=== PATIENT | female | born 1940 | race African-American/Black ===

== ENCOUNTER 2017-02-07 23:54 | Emergency (ER) | payer OTHER, MEDICAID ==
[~2017-02-07] VITALS: Ht 165.1 cm; Wt 68.9 kg
[~2017-02-07 23:54] MED LIST: BENA5TAB5 PO; CHOL20007 OR; CILO100T PO; CLON0.3D4 PO; DOCU100C8 PO; FERR-20 PO; FURO20TA3 PO; GABA-497 PO; GLIP-115 PO; LORA1TAB12 PO; RIVA1DIS TD; SIMV10TA84 PO; TRIA75TA55 PO
[2017-02-08 00:46] LABS: Basophils # (auto) 0 uL; Eosinophils # (auto) 0 uL; Lymphocytes # (auto) 1.9 uL; Monocytes # (auto) 0.5 uL; Red Cell Distribution Width 15.5 % (11.8-14.3); White Blood Cell 7.7 10^3/uL (4.4-10.8)
[2017-02-08 00:47] LABS: Allen Test Yes; Base Excess 0.4 mmol/L (-2.0-2.0); Blood 02Sat 92.6 % (96-100); Blood COHb 0.3 % (0.5-1.5); Blood MetHb 0.2 % (0.0-1.5); HCO3 24.3 mmol/L (22-26.0); HHb 7.4 % (0.0-5.0); MODE ROOM AIR; O2Hb 92.1 % (94.0-97.0); PCO2 36.4 mmHg (35.0-45.0); PCO2(T) 36.4 mmHg (35.0-45.0); PO2 65.7 mmHg (80.0-100.0); PO2(T) 65.7 mmHg (80.0-100.0); Sample Type Arterial; pH 7.443 (7.350-7.450)
[2017-02-08 00:48] LABS: Basophils % (auto) 0.4 % (0.0-2.0); Eosinophils % (auto) 0.6 % (0.0-7.0); Hematocrit 30.2 % (36.0-46.0); Hemoglobin 9.8 g/dL (12.2-16.2); Lymphocytes % (auto) 24.2 % (10.0-50.0); Mean Corpuscular Hemoglobin 25.1 pg (28.0-32.0); Mean Corpuscular Hgb Conc. 32.6 g/dL (32.0-36.0); Mean Platelet Volume 7.5 fL (6.9-10.8); Monocytes % (auto) 6.7 % (0.0-12.0); Neutrophils # (auto) 5.3 uL; Neutrophils % (auto) 68.1 % (37.0-80.0); Nucleated Red Blood Cells % 0.1 %; Platelet Count (auto) 339 10^3/uL (140-450)
[2017-02-08 00:50] LABS: Urine Bilirubin Negative (Negative); Urine Blood Negative /uL (Negative); Urine Color Yellow (Yellow); Urine Glucose Normal (Normal); Urine Hyaline Cast FEW /lpf (0 - 2); Urine Ketone Negative (Negative); Urine Mucus FEW (None Seen); Urine Nitrite POSITIVE (Negative); Urine RBC 11 /hpf (0 - 4); Urine Squamous Epithelial Cell FEW /hpf (<5); Urine Urobilinogen Normal (Negative); Urine pH 5.5 (5.0-8.0)
[2017-02-08 01:00] LABS: Partial Thromboplastin Time 26.5 sec (22.64-33.71); Prothrombin Time 10.9 sec (9.37-12.3)
[2017-02-08 01:09] LABS: Albumin 3.3 g/dL (3.4-5.0); Alkaline Phosphatase 197 U/L (45-117); Anion Gap 6 (5-15); Aspartate Aminotransferase 30 U/L (15-37); BUN/Creatinine Ratio 41.2; Bilirubin, Total 0.4 mg/dL (0.2-1.0); Blood Urea Nitrogen 49 mg/dL (7-18); Calcium 9.2 mg/dL (8.5-10.1); Carbon Dioxide 27 mmol/L (21-32); Chloride 105 mmol/L (98-107); GFR African American 57 mL/min; GFR Non-African American 47 mL/min; Glucose 117 mg/dL (74-106); Magnesium 2.3 mg/dL (1.6-2.6); Potassium 3.3 mmol/L (3.5-5.1); Sodium 138 mmol/L (136-145); Total Protein 7.4 g/dL (6.4-8.2)
[2017-02-08 01:14] LABS: B-Type Natriuretic Peptide 14.7 pg/mL (0-100); Temperature: 21.5 C (20.0-25.0)
[2017-02-08] MEDS ORDERED: SODIUM CHLORIDE 0.9% 1,000 ML IV ONE (01:30)
[2017-02-08] MEDS ORDERED: CEFTRIAXONE SODIUM 2 GM in D5W 5% 50 ML IV ONE (01:30)
[2017-02-08] MEDS ORDERED: cefTRIAXone 1GM/10ml IVPUSH 20 ML IV ONE (01:32)
[2017-02-08] MEDS ORDERED: OXYCODONE W/ ACETAMINOPHEN 5/325MG TABLET PO ONE (04:45)
[2017-02-08] MEDS ORDERED: SODIUM CHLORIDE 0.9% 500 ML IV ONE (05:15)
[2017-02-08] MEDS ORDERED: LEVOFLOXACIN 500MG 100 ML IV ONE (05:15)
[2017-02-08] MEDS ORDERED: POTASSIUM CHL 10% (20 MEQ/15ML) 15ml ORAL SOLN PO ONE (05:15)
[2017-02-08 06:55] VITALS: BP 125/72
== END 2017-02-08 07:24 | disposition home or self-care (01) ==
LOC: EDBD 23:54 → ER 02-08 00:02
DX: A41.9 Sepsis, unspecified organism (principal); R41.82 Altered mental status, unspecified; N39.0 Urinary tract infection, site not specified; I50.9 Heart failure, unspecified; I11.0 Hypertensive heart disease with heart failure; E11.9 Type 2 diabetes mellitus without complications; F02.80 Dementia in other diseases classified elsewhere, unspecified severity, without behavioral disturbance, psychotic disturbance, mood disturbance, and anxiety; G30.9 Alzheimer's disease, unspecified; Z86.73 Personal history of transient ischemic attack (TIA), and cerebral infarction without residual deficits
CPT/HCPCS: 36415; 36600; 70450; 71010; 80053; 80307; 80320; 81001; 82805; 83605; 83735; 83880; 84484; 85025; 85610; 85730; 86141; 87040; 87086; 87088; 87186; 93005; 96361; 96365; 96375; 99291; J0696; J1956; 96367; J7060

== ENCOUNTER 2017-03-05 11:58 | Inpatient (IN) | payer OTHER, MEDICAID ==
[~2017-03-05] VITALS: Ht 170.2 cm; Wt 78.0 kg
[~2017-03-05 11:58] MED LIST changes: -GABA-497 PO; +GABA300C10 PO
[2017-03-05] MEDS ORDERED: SODIUM CHLORIDE 0.9% 1,000 ML IV ONE ×2 (15:54→19:15)
[2017-03-05] MEDS ORDERED: PROMETHAZINE HCL 25 MG/ML 1ML IV ONE (16:00)
[2017-03-05] MEDS ORDERED: HYDROmorphone HCL 2 MG/ML VL IV ONE (16:00)
[2017-03-05 17:49] LABS: Eosinophils # (auto) 0 uL
[2017-03-05 17:53] LABS: Basophils # (auto) 0.1 uL; Basophils % (auto) 0.6 % (0.0-2.0); Eosinophils % (auto) 0.2 % (0.0-7.0); Hemoglobin 10.3 g/dL (12.2-16.2); Lymphocytes # (auto) 1.6 uL; Lymphocytes % (auto) 19.3 % (10.0-50.0); Mean Corpuscular Hemoglobin 24.6 pg (28.0-32.0); Mean Corpuscular Hgb Conc. 32.1 g/dL (32.0-36.0); Mean Corpuscular Volume 76.5 fL (80.0-100.0); Monocytes # (auto) 0.4 uL; Monocytes % (auto) 4.9 % (0.0-12.0); Neutrophils # (auto) 6.1 uL; Nucleated Red Blood Cells % 0.2 %; Platelet Count (auto) 291 10^3/uL (140-450); Red Blood Cells 4.19 10^6/uL (4.0-5.20); Red Cell Distribution Width 16.6 % (11.8-14.3); White Blood Cell 8.2 10^3/uL (4.4-10.8)
[2017-03-05 18:03] LABS: INR 0.99 (0.9-1.15); Partial Thromboplastin Time 22.4 sec (22.64-33.71); Prothrombin Time 10.8 sec (9.37-12.3)
[2017-03-05] MEDS ORDERED: LORazepam 2MG/ML-1ML VIAL ONE (18:04)
[2017-03-05 18:08] LABS: Albumin 3.6 g/dL (3.4-5.0); Bilirubin, Total 0.3 mg/dL (0.2-1.0); Calcium 8.9 mg/dL (8.5-10.1); Potassium 4.3 mmol/L (3.5-5.1); Total Protein 7.8 g/dL (6.4-8.2)
[2017-03-05] MEDS ORDERED: LORazepam 2MG/ML-1ML VIAL IV ONE (18:30)
[2017-03-05] MEDS ORDERED: MORPHINE SULF INJ 2 MG/ML SYRINGE 1ML IV PRN (19:15)
[2017-03-05] MEDS ORDERED: NITROGLYCERIN 0.4 MG SL TAB SL PRN (19:15)
[2017-03-05 20:50] VITALS: BP 133/67
[2017-03-06] VITALS (7 sets, daily range): BP systolic 126–156; BP diastolic 55–77
[2017-03-06] MEDS: HYDROcodone-ACET 10/325MG TAB PO PRN ×2 (00:24→04:40)
[2017-03-06] MEDS: LORazepam 2MG/ML-1ML VIAL IV PRN (12:05)
[2017-03-06] MEDS: HYDROmorphone HCL 2 MG/ML VL IV PRN ×2 (17:00→20:50)
[2017-03-07] MEDS: HYDROmorphone HCL 2 MG/ML VL IV PRN ×5 (02:00→21:53)
[2017-03-07 05:04] VITALS: BP 126/66
[2017-03-07 06:14] LABS: Basophils # (auto) 0 uL; Hemoglobin 8.4 g/dL (12.2-16.2); Mean Corpuscular Hemoglobin 24.7 pg (28.0-32.0); Mean Corpuscular Hgb Conc. 31.6 g/dL (32.0-36.0); Mean Corpuscular Volume 78.1 fL (80.0-100.0); Monocytes # (auto) 0.6 uL; Neutrophils # (auto) 3.5 uL; Platelet Count (auto) 252 10^3/uL (140-450); White Blood Cell 6.5 10^3/uL (4.4-10.8)
[2017-03-07 06:17] LABS: Basophils % (auto) 0.5 % (0.0-2.0); Eosinophils # (auto) 0 uL; Eosinophils % (auto) 0.7 % (0.0-7.0); Hematocrit 26.5 % (36.0-46.0); Lymphocytes # (auto) 2.3 uL; Lymphocytes % (auto) 35.2 % (10.0-50.0); Monocytes % (auto) 9.1 % (0.0-12.0); Neutrophils % (auto) 54.5 % (37.0-80.0); Red Cell Distribution Width 16.7 % (11.8-14.3)
[2017-03-07 06:33] LABS: BUN/Creatinine Ratio 26.6; Calcium 8.5 mg/dL (8.5-10.1); Potassium 4.2 mmol/L (3.5-5.1)
[2017-03-07 12:30] VITALS: BP 159/78
[2017-03-07] MEDS: LORazepam 2MG/ML-1ML VIAL IV PRN (15:24)
[2017-03-07 16:02] LABS: Urine Specific Gravity 1.015 (1.001-1.035)
[2017-03-07 16:03] LABS: Urine Blood Negative /uL (Negative)
[2017-03-07 16:04] LABS: Urine WBC Clumps PRESENT /hpf (None Seen)
[2017-03-07 16:05] LABS: Urine Bacteria FEW /hpf (None Seen)
[2017-03-07 16:06] VITALS: BP 117/58
[2017-03-07 16:06] LABS: Urine WBC 80 /hpf (0 - 5)
[2017-03-07 20:00] VITALS: BP 138/59
[2017-03-07 22:00] VITALS: BP_SYST 138; BP_DIAS 58; BP_DIAS 59
[2017-03-08] VITALS (7 sets, daily range): BP systolic 114–141; BP diastolic 48–78
[2017-03-08] MEDS: HYDROmorphone HCL 2 MG/ML VL IV PRN ×6 (01:49→20:11)
[2017-03-08 05:55] LABS: Basophils # (auto) 0 uL; Eosinophils # (auto) 0.1 uL; Hemoglobin 8.4 g/dL (12.2-16.2); Monocytes # (auto) 0.6 uL; Neutrophils # (auto) 3.9 uL
[2017-03-08 05:58] LABS: Basophils % (auto) 0.4 % (0.0-2.0); Eosinophils % (auto) 1.1 % (0.0-7.0); Hematocrit 26.6 % (36.0-46.0); Lymphocytes # (auto) 2.1 uL; Lymphocytes % (auto) 30.9 % (10.0-50.0); Mean Corpuscular Hemoglobin 24.6 pg (28.0-32.0); Mean Corpuscular Hgb Conc. 31.7 g/dL (32.0-36.0); Mean Corpuscular Volume 77.8 fL (80.0-100.0); Monocytes % (auto) 9.4 % (0.0-12.0); Neutrophils % (auto) 58.2 % (37.0-80.0); Platelet Count (auto) 248 10^3/uL (140-450); Red Blood Cells 3.42 10^6/uL (4.0-5.20); Red Cell Distribution Width 16.6 % (11.8-14.3); White Blood Cell 6.7 10^3/uL (4.4-10.8)
[2017-03-08 06:22] LABS: BUN/Creatinine Ratio 33.7; Calcium 8.9 mg/dL (8.5-10.1)
[2017-03-08] MEDS: cefTRIAXone 1GM/10ml IVPUSH 10 ML IV SCH (11:44)
[2017-03-09 05:00] VITALS: BP 149/60
[2017-03-09] MEDS ORDERED: BUPIVACAINE W/ EPINEPH 0.25% INJ 50ML MDV ONE ×3 (06:37→06:39)
[2017-03-09] MEDS ORDERED: LIDOCAINE 1% HCL (LOCAL ANESTH.) INJ 20ML MDV ONE (06:37)
[2017-03-09 06:39] LABS: Basophils # (auto) 0 uL; Eosinophils # (auto) 0 uL; Lymphocytes # (auto) 1.8 uL; Monocytes # (auto) 0.8 uL; Neutrophils # (auto) 5.4 uL
[2017-03-09 06:41] LABS: Basophils % (auto) 0.4 % (0.0-2.0); Eosinophils % (auto) 0.4 % (0.0-7.0); Hematocrit 30.3 % (36.0-46.0); Hemoglobin 9.9 g/dL (12.2-16.2); Lymphocytes % (auto) 22.2 % (10.0-50.0); Mean Corpuscular Hgb Conc. 32.6 g/dL (32.0-36.0); Mean Corpuscular Volume 76.7 fL (80.0-100.0); Platelet Count (auto) 250 10^3/uL (140-450); Red Blood Cells 3.95 10^6/uL (4.0-5.20); Red Cell Distribution Width 16.1 % (11.8-14.3)
[2017-03-09 06:47] LABS: INR 0.98 (0.9-1.15); Partial Thromboplastin Time 26.1 sec (22.64-33.71); Prothrombin Time 10.7 sec (9.37-12.3)
[2017-03-09] MEDS ORDERED: MORPHINE SULF(PF) 0.5MG/ML 10ML VIAL ONE (06:57)
[2017-03-09] MEDS ORDERED: fentaNYL CITRATE 100 MCG/2 ML VL ONE (06:57)
[2017-03-09] MEDS ORDERED: PROPOFOL 10 MG/ML 20 ML IV ONE (06:58)
[2017-03-09] MEDS ORDERED: MIDAZOLAM HCL 1MG/1ML-2 ML VIAL ONE (06:58)
[2017-03-09] MEDS ORDERED: SODIUM CHLORIDE LOCK 10 ML ONE (06:58)
[2017-03-09] MEDS ORDERED: ONDANSETRON HCL 4 MG/2 ML VIAL ONE (06:58)
[2017-03-09] MEDS ORDERED: TETRACAINE 1% INJ 2 ML VIAL IJ ONE (07:00)
[2017-03-09 07:02] LABS: BUN/Creatinine Ratio 32.1; Calcium 8.6 mg/dL (8.5-10.1); Potassium 3.7 mmol/L (3.5-5.1)
[2017-03-09] MEDS ORDERED: ceFAZolin 1GM/50ML 50 ML IV ONE (07:15)
[2017-03-09] MEDS ORDERED: ceFAZolin 1GM VL ONE (08:06)
[2017-03-09] MEDS ORDERED: HYDROmorphone HCL 2 MG/ML VL IV PRN (09:00)
[2017-03-09] MEDS ORDERED: diphenhdrAMINE HCL 50 MG/1 ML VL IV PRN (09:00)
[2017-03-09] MEDS ORDERED: NALOXONE HCL 0.4 MG/ML VIAL IV PRN (09:00)
[2017-03-09] MEDS ORDERED: ONDANSETRON HCL 4 MG/2 ML VIAL IV ONE (09:00)
[2017-03-09] MEDS ORDERED: ACCU-CHEK COMFORT CURVE STRIP VI ONE (09:00)
[2017-03-09 11:30] VITALS: BP 123/75
[2017-03-09] MEDS: ceFAZolin 1GM/50ML 50 ML IV SCH ×3 (12:00→23:46)
[2017-03-09] MEDS: HYDROcodone-ACET 10/325MG TAB PO PRN (16:04)
[2017-03-09 17:00] VITALS: BP 129/54
[2017-03-09] MEDS: HYDROmorphone HCL 2 MG/ML VL IV PRN (18:01)
[2017-03-09] MEDS: ONDANSETRON HCL 4 MG/2 ML VIAL IV PRN (18:02)
[2017-03-09 19:18] LABS: Hematocrit 31.6 % (36.0-46.0); Hemoglobin 9.5 g/dL (12.2-16.2)
[2017-03-09] MEDS: LORazepam 2MG/ML-1ML VIAL IV PRN (21:39)
[2017-03-09 22:04] VITALS: BP 133/69
[2017-03-10] MEDS: ONDANSETRON HCL 4 MG/2 ML VIAL IV PRN ×3 (01:52→14:54)
[2017-03-10] MEDS: HYDROmorphone HCL 2 MG/ML VL IV PRN ×4 (01:52→17:56)
[2017-03-10 05:03] VITALS: BP 144/67
[2017-03-10] MEDS: ceFAZolin 1GM/50ML 50 ML IV SCH ×3 (05:28→17:56)
[2017-03-10 08:00] VITALS: BP 143/58
[2017-03-10 08:11] LABS: Basophils # (auto) 0 uL; Basophils % (auto) 0.4 % (0.0-2.0); Eosinophils # (auto) 0 uL; Hemoglobin 8.6 g/dL (12.2-16.2); Mean Corpuscular Volume 77.5 fL (80.0-100.0); Neutrophils % (auto) 78.5 % (37.0-80.0)
[2017-03-10 08:14] LABS: Eosinophils % (auto) 0.1 % (0.0-7.0); Hematocrit 26.8 % (36.0-46.0); Lymphocytes # (auto) 0.9 uL; Lymphocytes % (auto) 10.6 % (10.0-50.0); Mean Corpuscular Hemoglobin 24.8 pg (28.0-32.0); Monocytes # (auto) 0.9 uL; Monocytes % (auto) 10.4 % (0.0-12.0); Neutrophils # (auto) 6.8 uL; Platelet Count (auto) 214 10^3/uL (140-450); Red Blood Cells 3.46 10^6/uL (4.0-5.20); Red Cell Distribution Width 16.3 % (11.8-14.3); White Blood Cell 8.7 10^3/uL (4.4-10.8)
[2017-03-10 08:26] LABS: BUN/Creatinine Ratio 25.9; Calcium 8.4 mg/dL (8.5-10.1); Potassium 3.8 mmol/L (3.5-5.1)
[2017-03-10] MEDS: LORazepam 2MG/ML-1ML VIAL IV PRN (11:55)
[2017-03-10 12:00] VITALS: BP 123/67
[2017-03-10 17:00] VITALS: BP 129/67
[2017-03-10] MEDS: Boost Glucose Control 8 Ounces PO SCH (18:11)
[2017-03-10 20:00] VITALS: BP 125/55
[2017-03-10 22:00] VITALS: BP 125/55
[2017-03-11] MEDS: ceFAZolin 1GM/50ML 50 ML IV SCH ×4 (00:14→18:00)
[2017-03-11] MEDS: HYDROmorphone HCL 2 MG/ML VL IV PRN ×3 (04:20→17:31)
[2017-03-11] MEDS: ONDANSETRON HCL 4 MG/2 ML VIAL IV PRN (04:20)
[2017-03-11 05:00] VITALS: BP 119/58
[2017-03-11 06:44] LABS: Basophils # (auto) 0 uL; Basophils % (auto) 0.2 % (0.0-2.0); Eosinophils # (auto) 0 uL; Hemoglobin 8.1 g/dL (12.2-16.2); Lymphocytes # (auto) 1.3 uL
[2017-03-11 06:47] LABS: Eosinophils % (auto) 0.5 % (0.0-7.0); Hematocrit 24.9 % (36.0-46.0); Lymphocytes % (auto) 15.7 % (10.0-50.0); Mean Corpuscular Hgb Conc. 32.5 g/dL (32.0-36.0); Mean Corpuscular Volume 76.9 fL (80.0-100.0); Monocytes # (auto) 0.9 uL; Monocytes % (auto) 10.7 % (0.0-12.0); Neutrophils % (auto) 72.9 % (37.0-80.0); Platelet Count (auto) 217 10^3/uL (140-450); Red Blood Cells 3.24 10^6/uL (4.0-5.20); Red Cell Distribution Width 16.1 % (11.8-14.3); White Blood Cell 8.2 10^3/uL (4.4-10.8)
[2017-03-11 07:01] LABS: Potassium 3.6 mmol/L (3.5-5.1)
[2017-03-11 07:08] LABS: BUN/Creatinine Ratio 28.6
[2017-03-11] MEDS: Boost Glucose Control 8 Ounces PO SCH ×2 (08:36→18:43)
[2017-03-11 09:00] VITALS: BP 140/55
[2017-03-11] MEDS: cefTRIAXone 1GM/10ml IVPUSH 10 ML IV SCH ×2 (11:28→11:29)
[2017-03-11] MEDS: ENOXAPARIN SOD 30 MG/0.3 ML SYRINGE SC SCH (11:28)
[2017-03-11 13:00] VITALS: BP 129/60
[2017-03-11 22:00] VITALS: BP 127/61
[2017-03-12] VITALS (7 sets, daily range): BP systolic 124–138; BP diastolic 50–86
[2017-03-12] MEDS: HYDROmorphone HCL 2 MG/ML VL IV PRN ×4 (00:03→16:32)
[2017-03-12 06:07] LABS: Hemoglobin 8.1 g/dL (12.2-16.2)
[2017-03-12 06:11] LABS: Hematocrit 25.8 % (36.0-46.0)
[2017-03-12] MEDS: Boost Glucose Control 8 Ounces PO SCH ×2 (08:14→18:41)
[2017-03-12] MEDS: DOCUSATE SOD 100 MG CAP PO SCH ×2 (10:00→21:34)
[2017-03-12] MEDS: ENOXAPARIN SOD 30 MG/0.3 ML SYRINGE SC SCH (10:00)
[2017-03-12] MEDS: cefTRIAXone 1GM/10ml IVPUSH 10 ML IV SCH (10:01)
[2017-03-13 00:06] VITALS: BP 109/60
[2017-03-13] MEDS: HYDROmorphone HCL 2 MG/ML VL IV PRN ×2 (01:06→08:22)
[2017-03-13 04:15] VITALS: BP 133/60
[2017-03-13 05:00] VITALS: BP 133/60
[2017-03-13 07:52] LABS: Hemoglobin 9.4 g/dL (12.2-16.2)
[2017-03-13 07:56] LABS: Hematocrit 28.8 % (36.0-46.0)
[2017-03-13 08:00] VITALS: BP 114/77
[2017-03-13] MEDS: Boost Glucose Control 8 Ounces PO SCH (08:22)
[2017-03-13] MEDS: cefTRIAXone 1GM/10ml IVPUSH 10 ML IV SCH (08:22)
[2017-03-13 09:34] VITALS: BP 114/77
[2017-03-13 09:45] VITALS: BP 114/77
[2017-03-13] MEDS: DOCUSATE SOD 100 MG CAP PO SCH (10:51)
[2017-03-13] MEDS: ENOXAPARIN SOD 30 MG/0.3 ML SYRINGE SC SCH (10:51)
== END 2017-03-13 16:40 | disposition home health service (06) | DRG 481 ==
LOC: ER 11:58 → EDBD 11:58 → TELE 11:59 → TELE-WESTW 20:48
PROVIDERS: ADMIT Internal Medicine; ATTEND Internal Medicine
PROC: 30233N1 Transfusion of Nonautologous Red Blood Cells into Peripheral Vein, Percutaneous Approach (ICD-10-PCS; 2017-03-08)
PROC: 0QH706Z Insertion of Intramedullary Internal Fixation Device into Left Upper Femur, Open Approach (ICD-10-PCS; 2017-03-09)
PROC: 0SPB04Z Removal of Internal Fixation Device from Left Hip Joint, Open Approach (ICD-10-PCS; principal; 2017-03-09 07:31)
DX: S72.302A Unspecified fracture of shaft of left femur, initial encounter for closed fracture (principal); I13.0 Hypertensive heart and chronic kidney disease with heart failure and stage 1 through stage 4 chronic kidney disease, or unspecified chronic kidney disease; E11.22 Type 2 diabetes mellitus with diabetic chronic kidney disease; N18.4 Chronic kidney disease, stage 4 (severe); I50.9 Heart failure, unspecified; J44.9 Chronic obstructive pulmonary disease, unspecified; G30.9 Alzheimer's disease, unspecified; F02.80 Dementia in other diseases classified elsewhere, unspecified severity, without behavioral disturbance, psychotic disturbance, mood disturbance, and anxiety; E78.00 Pure hypercholesterolemia, unspecified; W18.39XA Other fall on same level, initial encounter; Z86.73 Personal history of transient ischemic attack (TIA), and cerebral infarction without residual deficits; Y93.89 Activity, other specified; Y92.89 Other specified places as the place of occurrence of the external cause; Z79.899 Other long term (current) drug therapy
CPT/HCPCS: 36415; 71045; 73501; 73502; 76000; 80048; 80053; 81001; 82962; 83735; 85014; 85018; 85025; 85610; 85730; 86850; 86900; 86901; 86920; 87086; 93005; 94761; 96374; 96375; 97110; 97116; 97163; 97530; A4565; C1769; J0690; J2001; J2250; J2405; J2704

== ENCOUNTER 2018-02-10 06:21 | Emergency (ER) | payer OTHER, MEDICAID ==
[~2018-02-10] VITALS: Ht 162.6 cm; Wt 77.1 kg
[2018-02-10 08:40] LABS: Anion Gap 10 (5-15); BUN/Creatinine Ratio 23.5; Blood Urea Nitrogen 35 mg/dL (7-18); Calcium 8.3 mg/dL (8.5-10.1); Carbon Dioxide 19 mmol/L (21-32); Chloride 108 mmol/L (98-107); GFR African American 44 mL/min; GFR Non-African American 36 mL/min; Glucose 118 mg/dL (74-106); Potassium 5.1 mmol/L (3.5-5.1); Sodium 137 mmol/L (136-145)
[2018-02-10] MEDS ORDERED: DEXTROSE 10% 1,000 ML IV ONE (09:45)
[2018-02-10 10:19] LABS: Basophils # (auto) 0 uL; Basophils % (auto) 0.2 % (0.0-2.0); Eosinophils # (auto) 0 uL; Hemoglobin 10.8 g/dL (12.2-16.2); Monocytes # (auto) 0.3 uL
[2018-02-10 10:21] LABS: Eosinophils % (auto) 0.1 % (0.0-7.0); Hematocrit 34.3 % (36.0-46.0); Lymphocytes # (auto) 0.7 uL; Mean Corpuscular Hemoglobin 24.4 pg (28.0-32.0); Mean Corpuscular Hgb Conc. 31.6 g/dL (32.0-36.0); Mean Corpuscular Volume 77.3 fL (80.0-100.0); Monocytes % (auto) 3.9 % (0.0-12.0); Neutrophils # (auto) 6.4 uL; Neutrophils % (auto) 85.8 % (37.0-80.0); Platelet Count (auto) 186 10^3/uL (140-450); Red Blood Cells 4.43 10^6/uL (4.0-5.20); Red Cell Distribution Width 16.7 % (11.8-14.3); White Blood Cell 7.4 10^3/uL (4.4-10.8)
[2018-02-10 10:38] LABS: Albumin 3.6 g/dL (3.4-5.0); BUN/Creatinine Ratio 23.8; Calcium 8.5 mg/dL (8.5-10.1); Potassium 4.8 mmol/L (3.5-5.1)
[2018-02-10 10:43] LABS: Bilirubin, Total 0.3 mg/dL (0.2-1.0)
[2018-02-10 10:58] LABS: Urine Amorphous Crystal MOD /hpf (None Seen); Urine Bacteria FEW /hpf (None Seen); Urine Blood Negative /uL (Negative); Urine Specific Gravity 1.012 (1.001-1.035); Urine WBC 1 /hpf (0 - 5)
[2018-02-10 11:17] LABS: INR 0.94 (0.9-1.15); Partial Thromboplastin Time 22.8 sec (23.78-33.04); Prothrombin Time 10.1 sec (9.27-12.13)
[2018-02-10 13:43] VITALS: BP 151/90
[2018-02-10] MEDS ORDERED: ASPirin 81 mg TAB PO ONE (16:10)
[2018-02-11] MEDS ORDERED: ASPirin 81 mg TAB PO SCH (10:00)
== END 2018-02-10 16:37 | disposition home or self-care (01) ==
LOC: ER 06:21 → EDBD 06:21 → EDUNIT# 06:21 → ER 16:37
DX: E11.649 Type 2 diabetes mellitus with hypoglycemia without coma (principal); G93.41 Metabolic encephalopathy; I10 Essential (primary) hypertension; Z79.84 Long term (current) use of oral hypoglycemic drugs; Z86.73 Personal history of transient ischemic attack (TIA), and cerebral infarction without residual deficits
CPT/HCPCS: 36415; 70450; 71045; 80048; 80053; 81001; 82962; 83880; 84484; 85610; 85730; 96365; 96366